=== PATIENT | female | born 1950 | race Caucasian/White ===

== ENCOUNTER → 2018-02-13 | Outpatient (CLI) | payer MEDICARE ==
--- NOTE | 2018-02-15 10:03 | MM ---
Reason for exam: screening (asymptomatic). Last mammogram was performed 3 years and 6 months ago. History: Family history of breast cancer in grandmother. Took hormonal contraceptives for 4 years. Physical Findings: A clinical breast exam by your physician is recommended on an annual basis and results should be correlated with mammographic findings. MG Screening Mammo w CAD Bilateral CC and MLO view(s) were taken. Prior study comparison: August 26, 2014, bilateral MG screening mammo w CAD. October 12, 2007, bilateral digital screening mammogram. The breast tissue is heterogeneously dense. This may lower the sensitivity of mammography. Two areas of asymmetric density inferiorly on the right MLO view and one anteriorly and laterally right CC view appear more defined. ASSESSMENT: Incomplete: need additional imaging evaluation, BI-RAD 0 RECOMMENDATION: Special view mammogram of the right breast. If lesion persists on supplemental views, image directed ultrasound is recommended. [facility] will attempt to contact patient to return for supplemental views and ultrasound if indicated.
== END | disposition home or self-care (01) ==
LOC: RADMAMWWP 15:59
PROVIDERS: ATTEND Family Medicine
DX: Z12.31 Encounter for screening mammogram for malignant neoplasm of breast (principal)
CPT/HCPCS: 77067

== ENCOUNTER → 2018-02-19 | Outpatient (CLI) | payer MEDICARE ==
--- NOTE | 2018-02-19 14:50 | MM ---
Reason for exam: additional evaluation requested from abnormal screening. Last mammogram was performed less than 1 month ago. History: Family history of breast cancer in grandmother. Took hormonal contraceptives for 4 years. Physical Findings: Nurse did not find any significant physical abnormalities on exam. MG Work Up Mamm w CAD RT Spot compression CC, spot compression MLO, and ML view(s) were taken of the right breast. Prior study comparison: February 13, 2018, bilateral MG screening mammo w CAD. August 26, 2014, bilateral MG screening mammo w CAD. There is no discrete abnormality including area of concern. These results were verbally communicated with the patient and result sheet given to the patient on 02/19/18. ASSESSMENT: Probably benign, BI-RAD 3 RECOMMENDATION: Follow-up diagnostic mammogram of the right breast in 6 months.
== END | disposition home or self-care (01) ==
LOC: RADMAMWWP 13:51
PROVIDERS: ATTEND Family Medicine
DX: R92.8 Other abnormal and inconclusive findings on diagnostic imaging of breast (principal)
CPT/HCPCS: 77065

== ENCOUNTER → 2018-09-12 | Outpatient (CLI) | payer MEDICARE ==
--- NOTE | 2018-09-12 15:45 | BD ---
EXAMINATION TYPE: Axial Bone Density DATE OF EXAM: 09/12/2018 COMPARISON: NONE CLINICAL HISTORY: Postmenopausal female. Osteoporosis screening. Height: 63.5 Weight: 121.9 FRAX RISK QUESTIONS: Alcohol (3 or more units per day): no Family History (Parent hip fracture): no Glucocorticoids (More than 3mos): no (Ex: prednisone, prednisolone, methylprednisolone, dexamethasone, and hydrocortisone). History of Fracture in Adulthood: no Secondary Osteoporosis: 1. Type 1 Diabetes: no 2. Hyperthyroidism: no 3. Menopause before 45: yes 4. Malnutrition: no 5. Chronic liver disease: no Rheumatoid Arthritis: no Current Tobacco Use: no RISK FACTORS HISTORY OF: Family History of Osteoporosis: no Active: yes Diet low in dairy products/other sources of calcium: yes Postmenopausal woman: hysterectomy age 44 Lost more than 2 inches in height since high school: no MEDICATIONS: otc eye med Additional History: EXAM MEASUREMENTS: Bone mineral densitometry was performed using the SwipeTo[employer] System. Bone mineral density as measured about the Lumbar spine is: ----- L1-L4(G/cm2): 1.057 T Score Values are as follows: ----- L2: -1.3 ----- L3: -0.4 ----- L4: -0.7 ----- L1-L4: -1.0 Bone mineral density : baseline Bone mineral density about the R hip (g/cm2): 0.779 Bone mineral density about the L hip (g/cm2): 0.763 T Score values are as follows: -----R Neck: -1.9 -----L Neck: -2.0 -----R Total: -1.3 -----L Total: -1.4 Bone mineral density : baseline IMPRESSION: Osteopenia (T Score between -2.5 and -1). There is slightly increased risk of fracture and the patient may be considered for treatment. Re-Screen 2-5 years. NOTE: T-SCORE=SD OF THE YOUNG ADULT MEAN.
== END | disposition home or self-care (01) ==
LOC: RADBDWWP 15:01
PROVIDERS: ATTEND Family Medicine
DX: Z13.820 Encounter for screening for osteoporosis (principal); N95.1 Menopausal and female climacteric states
CPT/HCPCS: 77080

== ENCOUNTER → 2019-03-05 | Outpatient (CLI) | payer MEDICARE ==
--- NOTE | 2019-03-05 14:01 | MM ---
Reason for exam: additional evaluation requested from prior study. Last mammogram was performed 1 year ago. History: Family history of breast cancer in grandmother. Took hormonal contraceptives for 4 years. Physical Findings: Nurse did not find any significant physical abnormalities on exam. MG Diagnostic Mammo w CAD SNOW Bilateral CC and MLO view(s) were taken. Prior study comparison: February 19, 2018, right breast MG work up mamm w CAD RT. February 13, 2018, bilateral MG screening mammo w CAD. The breast tissue is heterogeneously dense. This may lower the sensitivity of mammography. There are benign appearing round dystrophic calcifications bilaterally. Asymmetric breast tissue in the right breast, stable. There is no discrete abnormality. These results were verbally communicated with the patient and result sheet given to the patient on 03/05/19. ASSESSMENT: Benign, BI-RAD 2 RECOMMENDATION: Routine screening mammogram of both breasts in 1 year.
== END | disposition home or self-care (01) ==
LOC: RADMAMWWP 13:16
PROVIDERS: ATTEND Family Medicine
DX: R92.8 Other abnormal and inconclusive findings on diagnostic imaging of breast (principal)
CPT/HCPCS: 77066

== ENCOUNTER 2019-10-30 10:00 | Day surgery (SDC) | payer MEDICARE ==
[2019-10-29 08:34] VITALS: BMI 21.9
[~2019-10-30 10:00] MED LIST: LACTATED RINGERS 1,000 ML IV SCH
[2019-10-30 10:23] VITALS: TEMP 97.8
[2019-10-30] MEDS ORDERED: LACTATED RINGERS 1,000 ML IV ONE (10:30)
[2019-10-30] MEDS ORDERED: PROPOFOL 10 MG/ML 20 ML VIAL IV ONE (11:27)
--- NOTE | 2019-10-30 11:54 | P.PCN ---
Date of Procedure: 10/30/19 Procedure(s) Performed: BRIEF HISTORY: Patient is a 68-year-old pleasant white female scheduled for an elective colonoscopy as a part of evaluation of history of colon polyps. Her last colonoscopy was done 5 years PROCEDURE PERFORMED: Colonoscopy. PREOPERATIVE DIAGNOSIS: History of colon polyps. IV sedation per Anesthesia. PROCEDURE: After informed consent was obtained, the patient, was brought into the endoscopy unit. IV sedation was administered by Anesthesia under continuous monitoring. Digital rectal examination was normal. Initially the Olympus CF-160 flexible video colonoscope was inserted in the rectum, gradually advanced into the cecum without any difficulty. Careful examination was performed as the scope was gradually being withdrawn. Ileocecal valve and the appendiceal orifice were visualized and appeared normal. Prep was excellent. Mucosa of the cecum, ascending colon, transverse colon, descending colon, sigmoid colon, and rectum appeared normal. Retroflexion was performed in the rectum and small internal hemorrhoids were seen. Scattered left-sided diverticulosis. The patient tolerated the procedure well. IMPRESSION: Normal-appearing colon from rectum to cecum with no evidence of colorectal neoplasia Small internal hemorrhoids Scattered sigmoid diverticulosis . RECOMMENDATIONS: Findings of this examination were discussed with the patient as well as his family. She was advised to have a repeat surveillance colonoscopy in 5 years from now because of the prior history of colon polyps.
[2019-10-30 12:03] VITALS: RESP 16
[2019-10-30 12:14] VITALS: BP 128/84; PULSE 65
== END 2019-10-30 12:34 | disposition home or self-care (01) ==
LOC: ORWHC2ENDO 10:00
PROVIDERS: ATTEND Internal Medicine Gastroenterology
DX: Z12.11 Encounter for screening for malignant neoplasm of colon (principal); K57.30 Diverticulosis of large intestine without perforation or abscess without bleeding; K64.8 Other hemorrhoids; Z86.010 Personal history of colon polyps; Z90.710 Acquired absence of both cervix and uterus
CPT/HCPCS: G0105; J2704; 45378

== ENCOUNTER → 2020-12-30 | Outpatient (CLI) | payer MEDICARE ==
--- NOTE | 2020-12-30 14:56 | BD ---
EXAMINATION TYPE: Axial Bone Density DATE OF EXAM: 12/30/2020 COMPARISON: 09.12.2018 CLINICAL HISTORY: 70 YR OLD FEMALE......ICD-10 CODE: Z78.0 MENOPAUSAL STATE Height: 62 Weight: 120 FRAX RISK QUESTIONS: Secondary Osteoporosis: YES 3. Menopause before 45: YES RISK FACTORS HISTORY OF: Postmenopausal woman: YES AT 44 YRS OLD, HYST Lost more than 2 inches in height since high school: YES Hyperparathyroidism: NO Adrenal Insufficiency: NO MEDICATIONS: Additional Medications: VIT D AND CALCIUM/MAGNESIUM Additional History: NOTHING TO NOTE HERE EXAM MEASUREMENTS: Bone mineral densitometry was performed using the Car reviews System. Bone mineral density as measured about the Lumbar spine is: ----- L1-L4(G/cm2): 1.110 T Score Values are as follows: ----- L1: -1.4 ----- L2: -1.3 ----- L3: 0.2 ----- L4: -0.2 ----- L1-L4: -0.6 Bone mineral density has: Increased 4.3% since study of: 09.12.2018 Bone mineral density about the R hip (g/cm2): 0.843 Bone mineral density about the L hip (g/cm2): 0.825 T Score values are as follows: -----R Neck: -1.8 -----L Neck: -1.9 -----R Total: -1.3 -----L Total: -1.4 Bone mineral density has: Increased 0.1% since study of: 09.12.2018 FRAX%s: THERE IS A 10.1% CHANCE FOR A MAJOR OSTEOPOROTIC FX AND 1.7% FOR HIP.....PROBABILITY FOR FX IN 10 YRS TIME IMPRESSION: Osteopenia NOTE: T-SCORE=SD OF THE YOUNG ADULT MEAN.
--- NOTE | 2021-01-01 11:49 | MM ---
Reason for exam: screening (asymptomatic). Last mammogram was performed 1 year and 10 months ago. History: Family history of breast cancer in grandmother. Took hormonal contraceptives for 4 years. Physical Findings: A clinical breast exam by your physician is recommended on an annual basis and results should be correlated with mammographic findings. MG 3D Screening Mammo W/Cad Bilateral CC and MLO view(s) were taken. Prior study comparison: March 05, 2019, bilateral MG diagnostic mammo w CAD SNOW. February 13, 2018, bilateral MG screening mammo w CAD. The breast tissue is heterogeneously dense. This may lower the sensitivity of mammography. No significant changes when compared with prior studies. ASSESSMENT: Benign, BI-RAD 2 RECOMMENDATION: Routine screening mammogram of both breasts in 1 year.
== END | disposition home or self-care (01) ==
LOC: RADMAMWWP 07:39
PROVIDERS: ATTEND Family Medicine
DX: Z12.31 Encounter for screening mammogram for malignant neoplasm of breast (principal); M85.89 Other specified disorders of bone density and structure, multiple sites; Z80.3 Family history of malignant neoplasm of breast; Z79.3 Long term (current) use of hormonal contraceptives
CPT/HCPCS: 77063; 77067; 77080

== ENCOUNTER → 2022-03-04 | Outpatient (CLI) | payer MEDICARE ==
--- NOTE | 2022-03-07 07:46 | MM ---
Reason for Exam: Screening (asymptomatic). Last mammogram was performed 1 year(s) and 2 month(s) ago. Patient History: Menarche at age 16. First Full-Term at age 28. Hysterectomy at age 44. Patient used Hormonal Contraceptives for 4 years. Maternal grandmother had breast cancer. Risk Values: Opal 5 year model risk: 1.7%. NCI Lifetime model risk: 5.4%. Prior Study Comparison: 02/13/2018 Bilateral Screening Mammogram, [facility]. 02/19/2018 Right Diagnostic Mammogram, [facility]. 03/05/2019 Bilateral Diagnostic Mammogram, [facility]. 12/30/2020 Bilateral Screening Mammogram, [facility]. Tissue Density: The breast tissue is heterogeneously dense. This may lower the sensitivity of mammography. Findings: Analyzed By CAD. There is no new suspicious mass in either breast. Grouped punctate calcifications within the upper outer left breast middle to posterior depth. Benign calcifications within both breasts. Overall Assessment: Incomplete: need additional imaging evaluation, BI-RAD 0 Management: Diagnostic Mammogram of the left breast. A clinical breast exam by your physician is recommended on an annual basis and results should be correlated with mammographic findings. [facility] will attempt to contact patient to return for supplemental views and ultrasound if indicated. Electronically signed and approved by: Orville Jay D.O.
== END | disposition home or self-care (01) ==
LOC: RADMAMWWP 07:35
PROVIDERS: ATTEND Family Medicine
DX: Z12.31 Encounter for screening mammogram for malignant neoplasm of breast (principal); Z80.3 Family history of malignant neoplasm of breast
CPT/HCPCS: 77063; 77067

== ENCOUNTER → 2022-03-15 | Outpatient (CLI) | payer MEDICARE ==
--- NOTE | 2022-03-15 11:07 | MM ---
Reason for Exam: Additional evaluation requested from abnormal screening. Last screening mammogram was performed less than 1 month ago. Patient History: Menarche at age 16. First Full-Term at age 28. Hysterectomy at age 44. Patient used Hormonal Contraceptives for 4 years. Maternal grandmother had breast cancer. Risk Values: Opal 5 year model risk: 1.7%. NCI Lifetime model risk: 5.4%. Prior Study Comparison: 07/20/2002 Screening Mammogram, [facility]. 10/12/2007 Bilateral Screening Mammogram, [facility]. 08/26/2014 Bilateral Screening Mammogram, [facility]. 02/13/2018 Bilateral Screening Mammogram, [facility]. 02/19/2018 Right Diagnostic Mammogram, [facility]. 03/05/2019 Bilateral Diagnostic Mammogram, [facility]. 12/30/2020 Bilateral Screening Mammogram, [facility]. 03/04/2022 Bilateral MG 3D screening mammo w/cad, [facility]. Tissue Density: Left: The breast tissue is heterogeneously dense. This may lower the sensitivity of mammography. Findings: Analyzed By CAD. There are grouped calcifications demonstrated within the outer left breast with coarse heterogenous morphology at middle depth is appreciated on the spot magnification CC view. Additional round grouped benign-appearing calcifications within the central right breast posterior depth. Overall Assessment: Suspicious, BI-RAD 4 Management: Stereotactic Core Biopsy of the left breast. A clinical breast exam by your physician is recommended on an annual basis and results should be correlated with mammographic findings. This exam should not preclude additional follow-up of suspicious palpable abnormalities. Results were given to the patient verbally at the time of exam. Electronically signed and approved by: Orville Jay D.O.
== END | disposition home or self-care (01) ==
LOC: RADMAMWWP 10:25
PROVIDERS: ATTEND Family Medicine
DX: R92.8 Other abnormal and inconclusive findings on diagnostic imaging of breast (principal); Z80.3 Family history of malignant neoplasm of breast
CPT/HCPCS: 77065; G0279; 77061

== ENCOUNTER → 2022-04-14 | Outpatient (CLI) | payer MEDICARE ==
--- NOTE | 2022-04-14 07:57 | P.GSHP ---
History of Present Illness H&P Date: 04/14/22 Chief Complaint: abnormal mammogram left breast Laila 71-year-old white female seen in consultation for Dr. Saini regarding her mammographic abnormality in the left breast. [place] [id number]. This revealed an area of concern in the left breast for which a diagnostic mammogram was performed on [id number]. On the diagnostic mammogram there were grouped calcifications within the outer left breast with coarse heterogeneous morphology for which stereotactic core biopsy was recommended. She does not feel any nodules of concern in either breast. She has never had any surgery on her breast or breast biopsies. She is not complaining of any skin changes or nipple discharge. CAffiene: 1 cup/day of coffee nicotine: none, never smoker chocolate: monthly BCP: used for about 3 years in remote past Family History: sister: cancer ? type maternal grandmother: breast cancer Hormonal History: menarche: 16 breast fed: no, age at : 28 menopause: hysterectomy at 47, left ovaries, done for non cancer hormones: none Surgical history: Hysterectomy endoscopic exam of the pancreases a cyst noted Medical History: none Social History: Attending: Negative Alcohol: Occasional Drugs: Negative - Constitutional Constitutional: Denies chills, Denies fever - EENT Eyes: denies blurred vision, denies pain Ears: deny: decreased hearing, tinnitus Ears, nose, mouth and throat: Denies headache, Denies sore throat - Breasts Breasts: bilateral: as per HPI - Cardiovascular Cardiovascular: Denies chest pain, Denies shortness of breath - Respiratory Respiratory: Denies cough, Denies 7 - Gastrointestinal Gastrointestinal: Denies abdominal pain, Denies diarrhea, Denies nausea, Denies vomiting - Genitourinary (Female) Genitourinary: Denies dysuria, Denies hematuria - Menstruation Menstruation: Reports post hysterectomy - Musculoskeletal Musculoskeletal: Reports myalgias - Integumentary Integumentary: Denies pruritus, Denies rash - Neurological Neurological: Denies numbness, Denies weakness - Psychiatric Psychiatric: Reports anxiety, Denies depression - Endocrine Endocrine: Denies fatigue, Denies weight change - Hematologic/Lymphatic Comment: none - Allergic/Immunologic Allergic/Immunologic: Reports as per HPI Past Medical History Past Medical History: No Reported History History of Any Multi-Drug Resistant Organisms: None Reported Past Surgical History: Hysterectomy Additional Past Surgical History / Comment(s): COLONOSCOPY Past Anesthesia/Blood Transfusion Reactions: Previous Problems w/ Anesthesia Additional Past Anesthesia/Blood Transfusion Reaction / Comment(s): PT STATES SHE HAD "CARDIAC ARREST" POST OP HYSTERECTOMY Past Psychological History: No Psychological Hx Reported Smoking Status: Never smoker Past Alcohol Use History: Occasional Past Drug Use History: None Reported - Past Family History Sister(s) Family Medical History: Cancer Medications and Allergies Home Medications Medication Instructions Recorded Confirmed Type Calcium Carbonate [Calcium] 600 mg PO DAILY 10/29/19 04/14/22 History L.acidoph,Paracasei, B.lactis 1 each PO DAILY 10/29/19 04/14/22 History [Probiotic] Vit C/E/Zn/Coppr/Lutein/Zeaxan 1 each PO DAILY 10/29/19 04/14/22 History [Preservision Areds 2 Softgel] Allergies Allergy/AdvReac Type Severity Reaction Status Date / Time No Known Allergies Allergy Verified 04/14/22 07:42 Surgical - Exam BMI: 22.1 - General no distress - Eyes normal ocular movement - ENT no hearing loss - Neck trachea midline - Respiratory normal respiratory effort, clear to auscultation - Cardiovascular Rhythm: regular Heart Sounds: normal: S1, S2 - Abdomen Abdomen: soft, non tender, no guarding, no rigid, no rebound - Integumentary normal turgor - Neurologic no disoriented, no combative - Musculoskeletal normal gait, normal posture - Psychiatric oriented to time, oriented to person, oriented to place, speech is normal, memory intact Breast Exam: BRA: 34C inspection: Bilateral grade 2 ptosis Palpation: Right breast: Multi-positional exam fibrocystic changes no dominant masses or nodules of concern Right axilla: No adenopathy of concern Left breast: Multi-positional exam fibrocystic changes no dominant masses or nodules of concern Left axilla: No adenopathy of concern Results Mammogram reviewed in detail with Dr. Valdez Assessment and Plan Assessment: Impression: Left breast radiographic abnormality microcalcifications upper outer quadrant region Fibrocystic breast changes Plan: Stereotactic core biopsy left breast Risks and benefits to procedure discussed with the patient. Risks include but are not limited to bleeding, infection, reaction to the anesthetic. If the lesion will be discordant on biopsied and further tissue acquisition may be necessary. If the lesion is unable to be targeted on the stereotactic core machine then needle localization excisional biopsy may be recommended. Alternative such as watchful waiting or resection of the operating room are discussed but not recommended. The procedure was discussed with the patient. As well as the fact that a small clip at the left to alex the area of the biopsy. She understands and wishes to proceed CC: Dr. Saini
--- NOTE | 2022-04-14 09:00 | P.PCN ---
Date of Procedure: 04/14/22 Preoperative Diagnosis: microcalcifications of concern left breast upper outer quadrant Postoperative Diagnosis: Same Procedure(s) Performed: Left breast stereotactic core biopsy Anesthesia: local Surgeon: Billie Farmer Pathology: other (Breast tissue, healthy medications of concern seen in radiograph of the specimen) Condition: stable Disposition: same day Indications for Procedure: Microcalcifications of concern left breast upper outer quadrant Operative Findings: Radiographic of specimen reveals microcalcifications of concern Description of Procedure: The patient is a 71-year-old white female who on routine mammogram was noted to have microcalcifications of concern in the left breast. A diagnostic left breast mammogram was performed on [id number] and stereotactic core biopsy was recommended. The patient was seen preprocedure and a breast examination was performed. No dominant masses or nodules of concern were identified in either breast. Risk and benefits of the procedure were discussed with the patient and she wished to proceed with a stereotactic core biopsy of the left breast. Alternatives such as watchful waiting or resection in the operating room were discussed but not recommended. The patient was taken to stereotactic core biopsy room. She was positioned prone on the low had table. A spike machine operator film was obtained. A lateral to medial approach was utilized. The calcifications of concern were identified. The les ion was targeted. The breast was prepped using Betadine. 20 mL of 1% lidocaine were used to anesthetize the area of concern. A 9-gauge vacuum-assisted core rotating biopsy needle was driven to the correct coordinates. A prefire film was obtained. The needle was noted to be in the correct location. The needle was fired. A posterior film was obtained. The needle was noted to be in the correct location. 16 core biopsy specimens were obtained. The specimen was radiographed and calcifications were noted to be present in the specimen which were believed to be those which were of concern. The area was lavaged. A Secure alex Top-Hat clip was placed. Radiograph revealed the clip to be in the correct location. There was a small hematoma at the site. Postprocedure radiograph will be obtained to confirm the location of the clip in 2 views. The specimen was sent to pathology. The patient will follow-up with Dr. Reyes on May 06. CC: Dr. Saini
== END ==
LOC: WWCWWP 07:01
PROVIDERS: ATTEND Surgery
DX: N60.11 Diffuse cystic mastopathy of right breast (principal); N60.12 Diffuse cystic mastopathy of left breast; R92.8 Other abnormal and inconclusive findings on diagnostic imaging of breast

== ENCOUNTER → 2022-04-14 | Day surgery (SDC) | payer MEDICARE ==
[2022-04-14 07:26] VITALS: RESP 16
[2022-04-14 09:16] VITALS: BP 159/95; PULSE 79; TEMP 98.1
--- NOTE | 2022-04-15 09:12 | MM ---
Date of Procedure: 04/14/22 Preoperative Diagnosis: microcalcifications of concern left breast upper outer quadrant Postoperative Diagnosis: Same Procedure(s) Performed: Left breast stereotactic core biopsy Anesthesia: local Surgeon: Billie Farmer Pathology: other (Breast tissue, healthy medications of concern seen in radiograph of the specimen) Condition: stable Disposition: same day Indications for Procedure: Microcalcifications of concern left breast upper outer quadrant Operative Findings: Radiographic of specimen reveals microcalcifications of concern Description of Procedure: The patient is a 71-year-old white female who on routine mammogram was noted to have microcalcifications of concern in the left breast. A diagnostic left breast mammogram was performed on [id number] and stereotactic core biopsy was recommended. The patient was seen preprocedure and a breast examination was performed. No dominant masses or nodules of concern were identified in either breast. Risk and benefits of the procedure were discussed with the patient and she wished to proceed with a stereotactic core biopsy of the left breast. Alternatives such as watchful waiting or resection in the operating room were discussed but not recommended. The patient was taken to stereotactic core biopsy room. She was positioned prone on the low had table. A manager trading film was obtained. A lateral to medial approach was utilized. The calcifications of concern were identified. The lesion was targeted. The breast was prepped using Betadine. 20 mL of 1% lidocaine were used to anesthetize the area of concern. A 9-gauge vacuum- assisted core rotating biopsy needle was driven to the correct coordinates. A prefire film was obtained. The needle was noted to be in the correct location. The needle was fired. A posterior film was obtained. The needle was noted to be in the correct location. 16 core biopsy specimens were obtained. The specimen was radiographed and calcifications were noted to be present in the specimen which were believed to be those which were of concern. The area was lavaged. A Secure alex Top-Hat clip was placed. Radiograph revealed the clip to be in the correct location. There was a small hematoma at the site. Postprocedure radiograph will be obtained to confirm the location of the clip in 2 views. The specimen was sent to pathology. The patient will follow-up with Dr. Reyes on May 06. [facility] [facility]
== END ==
LOC: RADMAMWWP 06:59
PROVIDERS: ATTEND Surgery
DX: N60.22 Fibroadenosis of left breast (principal); N60.92 Unspecified benign mammary dysplasia of left breast; N60.31 Fibrosclerosis of right breast; R92.0 Mammographic microcalcification found on diagnostic imaging of breast
CPT/HCPCS: 19082; 88305; 19081; A4648; J2001

== ENCOUNTER → 2022-05-06 | Outpatient (CLI) | payer MEDICARE ==
[2022-05-06 09:42] VITALS: BP 137/85; PULSE 78; RESP 17; TEMP 97.9
--- NOTE | 2022-05-06 10:07 | P.PN ---
Subjective Progress Note Date: 05/06/22 Principal diagnosis: Atypical lobular hyperplasia Laila 71-year-old white female seen in consultation for Dr. Saini regarding her mammographic abnormality in the left breast. She underwent a bilateral screening mammogram on . This revealed an area of concern in the left breast for which a diagnostic mammogram was performed on [id number]. On the diagnostic mammogram there were grouped calcifications within the outer left breast with coarse heterogeneous morphology for which stereotactic core biopsy was recommended. She does not feel any nodules of concern in either breast. She has never had any surgery on her breast or breast biopsies. She was not complaining of any skin changes or nipple discharge. A stero core biopsy was done on 04-14-22, the pathology was atypical lobular hyperplasia. She tolerated the biopsy without difficulty. CAffiene: 1 cup/day of coffee nicotine: none, never smoker chocolate: monthly BCP: used for about 3 years in remote past Family History: sister: cancer ? type maternal grandmother: breast cancer Hormonal History: menarche: 16 breast fed: no, age at : 28 menopause: hysterectomy at 47, left ovaries, done for non cancer hormones: none Surgical history: Hysterectomy endoscopic exam of the pancreases a cyst noted Medical History: none Social History: Attending: Negative Alcohol: Occasional Drugs: Negative - Constitutional Constitutional: Denies chills, Denies fever - EENT Eyes: denies blurred vision, denies pain Ears: deny: decreased hearing, tinnitus Ears, nose, mouth and throat: Denies headache, Denies sore throat - Breasts Breasts: bilateral: as per HPI - Cardiovascular Cardiovascular: Denies chest pain, Denies shortness of breath - Respiratory Respiratory: Denies cough - Gastrointestinal Gastrointestinal: Denies abdominal pain, Denies diarrhea, Denies nausea, Denies vomiting - Genitourinary (Female) Genitourinary: Denies dysuria, Denies hematuria - Menstruation Menstruation: Reports post hysterectomy - Musculoskeletal Musculoskeletal: Reports myalgias - Integumentary Integumentary: Denies pruritus, Denies rash - Neurological Neurological: Denies numbness, Denies weakness - Psychiatric Psychiatric: Reports anxiety, Denies depression - Endocrine Endocrine: Denies fatigue, Denies weight change - Hematologic/Lymphatic Comment: none - Allergic/Immunologic Allergic/Immunologic: Reports as per HPI Past Medical History Past Medical History: No Reported History History of Any Multi-Drug Resistant Organisms: None Reported Past Surgical History: Hysterectomy Additional Past Surgical History / Comment(s): COLONOSCOPY Past Anesthesia/Blood Transfusion Reactions: Previous Problems w/ Anesthesia Additional Past Anesthesia/Blood Transfusion Reaction / Comment(s): PT STATES SHE HAD "CARDIAC ARREST" POST OP HYSTERECTOMY Past Psychological History: No Psychological Hx Reported Smoking Status: Never smoker Past Alcohol Use History: Occasional Past Drug Use History: None Reported - Past Family History Sister(s) Family Medical History: Cancer Medications and Allergies Home Medications Medication Instructions Recorded Confirmed Type Calcium Carbonate [Calcium] 600 mg PO DAILY 10/29/19 04/14/22 History L.acidoph,Paracasei, B.lactis 1 each PO DAILY 10/29/19 04/14/22 History [Probiotic] Vit C/E/Zn/Coppr/Lutein/Zeaxan 1 each PO DAILY 10/29/19 04/14/22 History [Preservision Areds 2 Softgel] Allergies Allergy/AdvReac Type Severity Reaction Status Date / Time No Known Allergies Allergy Verified 04/14/22 07:42 Objective - Vital Signs Vital signs: Vital Signs Temp 97.9 F 05/06/22 09:41 Pulse 78 05/06/22 09:41 Resp 17 05/06/22 09:41 BP 137/85 05/06/22 09:41 Pulse Ox 96 05/06/22 09:41 FiO2 Intake & Output 05/05/22 05/06/22 05/06/22 18:59 06:59 18:59 Weight 61.235 kg - Constitutional General appearance: Present: cooperative - EENT Eyes: Present: EOMI ENT: Present: hearing grossly normal - Neck Neck: Present: normal ROM - Respiratory Respiratory: bilateral: CTA - Cardiovascular Rhythm: regular Heart sounds: normal: S1, S2 - Gastrointestinal General gastrointestinal: Present: soft - Integumentary Integumentary Comment(s): Resolving ecchymosis lateral aspect of the left breast, no evidence of hematoma or infection Integumentary: Present: normal turgor - Musculoskeletal Musculoskeletal: Present: gait normal - Psychiatric Psychiatric: Present: A&O x's 3, appropriate affect, intact judgment & insight - Additional findings Additional findings: Breast examination from [id number] Bra: 34C Inspection: Bilateral grade 2 ptosis Palpation: Right breast: Multiple positional exam fibrocystic changes no dominant masses or nodules of concern Right axilla: No adenopathy of concern left breast: Multiple positional exam fibrocystic changes no dominant masses or nodules of concern on prior exam, at this time there is some ecchymosis at the steering biopsy site Left axilla: No adenopathy of concern Assessment and Plan Assessment: Impression: Stereotactic core biopsy left breast atypical lobular hyperplasia Plan: Left breast needle localization lumpectomy, onco-plastic tissue transfer, no mastopexy incision Cc:
== END ==
LOC: WWCWWP 09:08
PROVIDERS: ATTEND Surgery
DX: N60.82 Other benign mammary dysplasias of left breast (principal)

== ENCOUNTER → 2022-07-14 | Outpatient (CLI) | payer MEDICARE ==
[2022-07-14 14:03] VITALS: BP 128/83; PULSE 110; RESP 16
--- NOTE | 2022-07-14 14:06 | P.PN ---
Subjective Progress Note Date: 07/14/22 Principal diagnosis: left breast LCIS Atypical lobular hyperplasia Laila is a 71-year-old white female seen in consultation for Dr. Saini regarding a mammographic abnormality in the left breast. She underwent a bilateral screening mammogram on . This revealed an area of concern in the left breast for which a diagnostic mammogram was performed on [id number]. On the diagnostic mammogram there were grouped calcifications within the outer left breast with coarse heterogeneous morphology for which stereotactic core biopsy was recommended. She did not feel any nodules of concern in either breast. She had never had any surgery on her breast or breast biopsies. She was not complaining of any skin changes or nipple discharge. A stero core biopsy was done on 04-14-22, the pathology was atypical lobular hyperplasia. She tolerated the biopsy without difficulty. She is not complaining of any changes in her breast at this time. CAffiene: 1 cup/day of coffee nicotine: none, never smoker chocolate: monthly BCP: used for about 3 years in remote past Family History: sister: cancer ? type maternal grandmother: breast cancer Hormonal History: menarche: 16 breast fed: no, age at : 28 menopause: hysterectomy at 47, left ovaries, done for non cancer hormones: none Surgical history: Hysterectomy endoscopic exam of the pancreases a cyst noted Medical History: none Social History: Attending: Negative Alcohol: Occasional Drugs: Negative - Constitutional Constitutional: Denies chills, Denies fever - EENT Eyes: denies blurred vision, denies pain Ears: deny: decreased hearing, tinnitus Ears, nose, mouth and throat: Denies headache, Denies sore throat - Breasts Breasts: bilateral: as per HPI - Cardiovascular Cardiovascular: Denies chest pain, Denies shortness of breath - Respiratory Respiratory: Denies cough - Gastrointestinal Gastrointestinal: Denies abdominal pain, Denies diarrhea, Denies nausea, Denies vomiting - Genitourinary (Female) Genitourinary: Denies dysuria, Denies hematuria - Menstruation Menstruation: Reports post hysterectomy - Musculoskeletal Musculoskeletal: Reports myalgias - Integumentary Integumentary: Denies pruritus, Denies rash - Neurological Neurological: Denies numbness, Denies weakness - Psychiatric Psychiatric: Reports anxiety, Denies depression - Endocrine Endocrine: Denies fatigue, Denies weight change - Hematologic/Lymphatic Comment: none - Allergic/Immunologic Allergic/Immunologic: Reports as per HPI Past Medical History Past Medical History: No Reported History History of Any Multi-Drug Resistant Organisms: None Reported Past Surgical History: Hysterectomy Additional Past Surgical History / Comment(s): COLONOSCOPY Past Anesthesia/Blood Transfusion Reactions: Previous Problems w/ Anesthesia Additional Past Anesthesia/Blood Transfusion Reaction / Comment(s): PT STATES SHE HAD "CARDIAC ARREST" POST OP HYSTERECTOMY Past Psychological History: No Psychological Hx Reported Smoking Status: Never smoker Past Alcohol Use History: Occasional Past Drug Use History: None Reported - Past Family History Sister(s) Family Medical History: Cancer Medications and Allergies Home Medications Medication Instructions Recorded Confirmed Type Calcium Carbonate [Calcium] 600 mg PO DAILY 10/29/19 04/14/22 History L.acidoph,Paracasei, B.lactis 1 each PO DAILY 10/29/19 04/14/22 History [Probiotic] Vit C/E/Zn/Coppr/Lutein/Zeaxan 1 each PO DAILY 10/29/19 04/14/22 History [Preservision Areds 2 Softgel] Allergies Allergy/AdvReac Type Severity Reaction Status Date / Time No Known Allergies Allergy Verified 04/14/22 07:42 Objective - Constitutional General appearance: Present: cooperative - EENT Eyes: Present: EOMI ENT: Present: hearing grossly normal - Neck Neck: Present: normal ROM - Respiratory Respiratory: bilateral: CTA - Cardiovascular Rhythm: regular Heart sounds: normal: S1, S2 - Gastrointestinal General gastrointestinal: Present: soft - Integumentary Integumentary: Present: normal turgor - Musculoskeletal Musculoskeletal: Present: gait normal - Psychiatric Psychiatric: Present: A&O x's 3, appropriate affect, intact judgment & insight - Additional findings Additional findings: Bra: 34C Inspection: Bilateral grade 2 ptosis Palpation: Right breast: Multi-positional exam fibrocystic changes no dominant masses or nodules of concern Right axilla: No adenopathy of concern left breast: Multiple positional exam fibrocystic changes no dominant masses or nodules of concern Left axilla: No adenopathy of concern Assessment and Plan Assessment: Impression: Stereotactic core biopsy left breast atypical lobular hyperplasia Plan: Left breast needle localization lumpectomy, onco-plastic tissue transfer, no mastopexy incision Risk and the surgery discussed with the patient. Risks include but are not limited to bleeding, infection, reaction to the anesthetic. She understands and wishes to proceed. Prescription was sent for [place]. And patient signed the opioid start talking documented. Cc:
== END ==
LOC: WWCWWP 13:52
PROVIDERS: ATTEND Surgery
DX: N60.92 Unspecified benign mammary dysplasia of left breast (principal)

== ENCOUNTER 2022-07-19 09:50 | Day surgery (SDC) | payer MEDICARE ==
[~2022-07-19 09:50] MED LIST changes: +HEPARIN SODIUM,PORCINE/PF 5,000 UNIT/0.5 ML SYRINGE SQ PRN; +HYDROmorphone 0.5 MG/0.5 ML SYRINGE IVP PRN; +ONDANSETRON 4 MG/2 ML VIAL IVP ONE; +Pre Op ABX Message 1 EACH MISC MISCELLANE ONE; +fentaNYL (PF) 50 MCG/ML 2 ML AMP IV PRN
[2022-07-19] MEDS ORDERED: ALPRAZolam 0.5 MG TAB ONE (10:26)
[2022-07-19] MEDS ORDERED: LIDOCAINE 1% INJ 10MG/ML (10 ML MDV) SQ ONE (11:06)
[2022-07-19 11:20] VITALS: TEMP 98.1
[2022-07-19] MEDS ORDERED: PROPOFOL 10 MG/ML 20 ML VIAL IV ONE (11:57)
[2022-07-19] MEDS ORDERED: MIDAZOLAM 2 MG/2 ML VIAL ONE (11:57)
[2022-07-19] MEDS ORDERED: LIDOCAINE 2% INJ 20 MG/ML (2 ML VIAL) ONE (11:57)
[2022-07-19] MEDS ORDERED: PHENYLEPHRINE-0.9% NACL SYG 1,000 MCG/10 ML SYRINGE ONE (11:57)
[2022-07-19] MEDS ORDERED: fentaNYL (PF) 50 MCG/ML 2 ML AMP ONE (11:57)
[2022-07-19] MEDS ORDERED: SODIUM CHLORIDE 0.9% 50 ML with ceFAZolin 2,000 MG IV ONE ×2 (12:02)
[2022-07-19] MEDS ORDERED: LIDOCAINE 1% INJ 10MG/ML (20 ML MDV) SQ ONE ×2 (12:27→12:45)
--- NOTE | 2022-07-19 12:41 | P.OP ---
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 Following induction of anesthesia the left breast was prepped and draped in a sterile fashion. An incision was made and carried down to the hook of the needle. Surrounding tissue was excised. The specimen was painted for orientation. Titanium clips were placed. The wound was well irrigated no evidence of bleeding was identified. The deep tissues were closed using 3-0 Vicryl suture. This is followed by closure of the skin using a 4-0 Monocryl. Patient tolerated the procedure in stable condition. All instrument and sponge counts were correct at the end of the case.
--- NOTE | 2022-07-19 12:57 | P.DS ---
Providers Attending physician: Billie Farmer Primary care physician: Lorena Saini Plan - Discharge Summary Discharge Rx Participant: No New Discharge Prescriptions: No Action Calcium Carbonate [Calcium] 600 mg PO DAILY Vit C/E/Zn/Coppr/Lutein/Zeaxan [Preservision Areds 2 Softgel] 1 each PO DAILY L.acidoph,Paracasei, B.lactis [Probiotic] 1 each PO DAILY HYDROcodone/APAP 5-325MG [[place] 5] 1 - 2 each PO Q4H PRN #10 tab PRN Reason: Pain Discharge Medication List Calcium Carbonate [Calcium] 600 mg PO DAILY 10/29/19 [History] L.acidoph,Paracasei, B.lactis [Probiotic] 1 each PO DAILY 10/29/19 [History] Vit C/E/Zn/Coppr/Lutein/Zeaxan [Preservision Areds 2 Softgel] 1 each PO DAILY 10/29/19 [History] HYDROcodone/APAP 5-325MG [[place] 5] 1 - 2 each PO Q4H PRN #10 tab 07/14/22 [Rx] Follow up Appointment(s)/Referral(s): Billie Farmer MD [STAFF PHYSICIAN] - 1 Week Activity/Diet/Wound Care/Special Instructions: do not drive for 24 hours after discharge or if taking narcotic pain medicine may shower after 48 hours wear bra at all times Discharge Disposition: HOME SELF-CARE
[2022-07-19 13:24] VITALS: RESP 16
[2022-07-19 14:39] VITALS: BP 116/80; PULSE 69
== END 2022-07-19 14:57 | disposition home or self-care (01) ==
LOC: OR 09:50
PROVIDERS: ATTEND Surgery
DX: D05.02 Lobular carcinoma in situ of left breast (principal); N62 Hypertrophy of breast
CPT/HCPCS: 76098; 19281; 19301; C1819; J2250; J2405; J0690; J2001 ×3; J3010; J2370; J2704; J1644; 88307

== ENCOUNTER → 2022-07-28 | Outpatient (CLI) | payer MEDICARE ==
[2022-07-28 10:54] VITALS: BP 143/90; PULSE 90; RESP 17; TEMP 98.4
--- NOTE | 2022-07-28 11:08 | P.PN ---
Progress Note - Text Progress Note Date: 07/28/22 Laila is status post left breast needle localization and lumpectomy on 07-19-22. Her pathology was benign with previous biopsy site. She has no complaints following the procedure. Examination: Lungs: Clear Heart: Regular rate and rhythm Incision: Clean and dry Impression: Patient doing well status post left breast needle localization and lumpectomy and [id number] Plan: Left breast mammogram in 6 months with physician exam at that time CC: Dr. Saini
== END ==
LOC: WWCWWP 10:37
PROVIDERS: ATTEND Surgery
DX: Z90.12 Acquired absence of left breast and nipple (principal)

== ENCOUNTER → 2023-02-01 | Outpatient (CLI) | payer MEDICARE ==
--- NOTE | 2023-02-01 09:29 | MM ---
Reason for Exam: Additional evaluation requested from prior study. Last screening mammogram was performed 11 month(s) ago. Patient History: Menarche at age 16. First Full-Term at age 28. Hysterectomy at age 44. Previous Atypical Lobular Hyperplasia at age 71. Patient used Hormonal Contraceptives for 4 years. 07/19/2022, Lumpectomy on the Left side. 07/19/2022, Benign MG pre op needle loc LT on the left side. 04/14/2022, High risk MG stereo VAD BX LT on the left side. Maternal grandmother had breast cancer. Risk Values: Opal 5 year model risk: 5.1%. NCI Lifetime model risk: 14.2%. Prior Study Comparison: 03/05/2019 Bilateral Diagnostic Mammogram, [facility]. 12/30/2020 Bilateral Screening Mammogram, [facility]. 03/04/2022 Bilateral MG 3D screening mammo w/cad, [facility]. 03/15/2022 Left MG 3D work up w/cad LT, [facility]. Tissue Density: The breast tissue is heterogeneously dense. This may lower the sensitivity of mammography. Findings: Analyzed By CAD. Post excisional changes of the left breast. Benign calcifications within both breasts. No new suspicious mass or worrisome group of microcalcifications within either breast. Overall Assessment: Benign, BI-RAD 2 Management: Diagnostic Mammogram of both breasts in 1 year. A clinical breast exam by your physician is recommended on an annual basis and results should be correlated with mammographic findings. This exam should not preclude additional follow-up of suspicious palpable abnormalities. Results were given to the patient verbally at the time of exam. Note on Opal scores and lifetime risk: 1. A Opal score greater than 3% is considered moderate risk. If this is the case, consider specialist referral to assess eligibility for a risk reducing agent. If overall lifetime risk for the development of breast cancer is 20% or higher, the patient may qualify for future screening with alternating mammogram and breast MRI. Electronically signed and approved by: Orville Jay D.O.
== END | disposition home or self-care (01) ==
LOC: RADMAMWWP 08:58
PROVIDERS: ATTEND Family Medicine
DX: R92.8 Other abnormal and inconclusive findings on diagnostic imaging of breast (principal); Z80.3 Family history of malignant neoplasm of breast
CPT/HCPCS: 77066; G0279; 77062

== ENCOUNTER → 2024-07-08 | Outpatient (CLI) | payer MEDICARE ==
--- NOTE | 2024-07-09 08:42 | BD ---
EXAMINATION TYPE: Axial Bone Density DATE OF EXAM: 07/08/2024 CLINICAL HISTORY: 73 years old Female. ICD-10 CODE: Z78.0 POST MENOPAUSAL , Additional History: Height: 63" Weight: 129lbs FRAX RISK QUESTIONS: Alcohol (3 or more units per day): No Family History (Parent hip fracture): No Glucocorticoids (More than 3mos): No (Ex: prednisone, prednisolone, methylprednisolone, dexamethasone, and hydrocortisone). History of Fracture in Adulthood: No Secondary Osteoporosis: 1. Type 1 Diabetes: No 2. Hyperthyroidism: No 3. Menopause before 45: Unknow 4. Malnutrition: No 5. Chronic liver disease: No Rheumatoid Arthritis: No Current Tobacco Use: No RISK FACTORS HISTORY OF: Hip Fracture (Right/Left): No Spine Fracture: No History of Wrist Fracture: No Surgery to Spine/Hip(right/left)/Wrist (right/left): No MEDICATIONS: Thyroid Medications: No Osteoporosis Medications: No EXAM MEASUREMENTS: Bone mineral densitometry was performed using the Bright[employer] System. Bone mineral density as measured about the Lumbar spine is: ----- L1-L4(G/cm2): 1.109 T Score Values are as follows: ----- L1: -1.4 ----- L2: -1.1 ----- L3: 0.2 ----- L4: -0.4 ----- L1-L4: -0.6 Z Score Values are as follows: ----- L1: 0.5 ----- L2: 0.8 ----- L3: 2.1 ----- L4: 1.5 ----- L1-L4: 1.3 Bone mineral density has: decreased -0.1% since study of: 12/30/2020 Bone mineral density about the R hip (g/cm2): 0.817 Bone mineral density about the L hip (g/cm2): 0.805 T Score values are as follows: -----R Neck: -2.2 -----L Neck: -2.1 -----R Total: -1.5 -----L Total: -1.6 Z Score values are as follows: -----R Neck: -0.3 -----L Neck: -0.2 -----R Total: 0.2 -----L Total: 0.1 Bone mineral density has: decreased -2.8% since study of: 12/30/2020 FRAX%s: The graph provided illustrates a 12.6% chance for a major osteoporotic fx and a 3.0% chance f or the hips probability for fx in 10 years time. IMPRESSION: Osteopenia (T Score between -2.5 and -1). There is slightly increased risk of fracture and the patient may be considered for treatment. Re-Screen 2-5 years. NOTE: T-SCORE=SD OF THE YOUNG ADULT MEAN. [facility], , 07/09/2024 8:40 AM
--- NOTE | 2024-07-09 10:30 | MM ---
Reason for Exam: Screening (asymptomatic). Last mammogram was performed 1 year(s) and 5 month(s) ago. Patient History: Menarche at age 16. First Full-Term at age 28. Hysterectomy at age 44. Previous Atypical Lobular Hyperplasia at age 71. Patient used Hormonal Contraceptives for 4 years. 07/19/2022, Lumpectomy on the Left side. 07/19/2022, Benign MG pre op needle loc LT on the left side. 04/14/2022, High risk MG stereo VAD BX LT on the left side. Maternal grandmother had breast cancer. Risk Values: Opal 5 year model risk: 5.1%. NCI Lifetime model risk: 13.6%. Prior Study Comparison: 03/04/2022 Bilateral MG 3D screening mammo w/cad, [facility]. 03/15/2022 Left MG 3D work up w/cad LT, [facility]. 02/01/2023 Bilateral MG 3D diag mammo w/cad SNOW, [facility]. Tissue Density: The breasts are heterogeneously dense, which may obscure small masses. Findings: Analyzed By CAD. There is no suspicious group of microcalcifications or new suspicious mass in either breast. Overall Assessment: Benign, BI-RAD 2 Management: Screening Mammogram of both breasts in 1 year. . Patient should continue monthly self-breast exams. A clinical breast exam by your physician is recommended on an annual basis. This exam should not preclude additional follow-up of suspicious palpable abnormalities. Note on Opal scores and lifetime risk: 1. A Opal score greater than 3% is considered moderate risk. If this is the case, consider specialist referral to assess eligibility for a risk reducing agent. 2. If overall lifetime risk for the development of breast cancer is 20% or higher, the patient may qualify for future screening with alternating mammogram and breast MRI. [facility], , 07/09/2024 10:26 AM. Electronically signed and approved by: Rex Trevizo M.D. [facility]
== END | disposition home or self-care (01) ==
LOC: RADBDWWP 15:46
PROVIDERS: ATTEND Family Medicine
DX: Z12.31 Encounter for screening mammogram for malignant neoplasm of breast (principal); R92.333 Mammographic heterogeneous density, bilateral breasts; M85.89 Other specified disorders of bone density and structure, multiple sites; Z78.0 Asymptomatic menopausal state; Z92.0 Personal history of contraception; Z80.3 Family history of malignant neoplasm of breast
CPT/HCPCS: 77063; 77067; 77080